=== PATIENT | female | born 1960 | race American Indian/Alaskan Native ===

== ENCOUNTER 2017-08-20 10:40 | Emergency (ER) | payer OTHER ==
[2017-08-20 10:50] VITALS: RESP 20
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
[2017-08-20 11:42] VITALS: BP 156/91; PULSE 60; TEMP 97.9
[2017-08-20 11:51] VITALS: O2SAT 99
== END 2017-08-20 12:05 | disposition home or self-care (01) ==
LOC: C.ER 10:40
DX: S39.012A Strain of muscle, fascia and tendon of lower back, initial encounter (principal); V49.59XA Passenger injured in collision with other motor vehicles in traffic accident, initial encounter; Y92.410 Unspecified street and highway as the place of occurrence of the external cause